=== PATIENT | female | born 1965 | race African-American/Black ===

== ENCOUNTER 2023-09-03 07:34 | Emergency (ER) | payer MEDICAID ==
[~2023-09-03] VITALS: Ht 165.1 cm; Wt 75.0 kg
[2023-09-03] MEDS: PREDNISONE 20MG TABLET PO STA (07:55)
[2023-09-03 09:25] VITALS: PULSE 80; RESP 20; O2SAT 96
[2023-09-03] MEDS: ALBUTEROL (0.083%) 2.5MG/3ML NEB HHN STA (10:56)
[2023-09-03] MEDS: IPRATROPIUM BROMIDE (0.02%) 0.5MG/2.5ML NEB HHN STA (10:56)
[2023-09-03] MEDS ORDERED: ALBU6.7H15 INH (11:42)
[2023-09-03] MEDS ORDERED: P20 MT (11:42)
[2023-09-03 12:01] VITALS: BP 125/80; PULSE 72; RESP 16; TEMP 98.7
== END 2023-09-03 12:02 | disposition home or self-care (01) ==
LOC: ER 07:34
DX: J45.901 Unspecified asthma with (acute) exacerbation (principal); F17.200 Nicotine dependence, unspecified, uncomplicated; F12.10 Cannabis abuse, uncomplicated; I10 Essential (primary) hypertension; Z88.0 Allergy status to penicillin
CPT/HCPCS: 71045; 94640; 99285; J7512; Z7610 ×3